=== PATIENT | male | born 1950 | race Caucasian/White ===

== ENCOUNTER → 2018-03-11 | Outpatient (CLI) | payer MEDICARE ==
[~2018-03-11] MED LIST: 100CC Multi-Ad1 EACH; ASCO500 PO; CEPH500 PO; CHOL10002; FLUT.05NI; FLUT44OIA; Glucosamine H1500 MG PO; OLME5TAB; Seroquel50 MG PO; TAMS.4ER PO; TOCO1000 PO; VALS80 PO
== END | disposition home or self-care (01) ==
LOC: OLS 08:00 → LAB SHORT 08:00
DX: R19.7 Diarrhea, unspecified (principal)
CPT/HCPCS: 87177; 87209

== ENCOUNTER → 2018-03-12 | Outpatient (CLI) | payer MEDICARE | END | disposition home or self-care (01) | LOC: OLS 08:00 → LAB SHORT 08:00 | DX: R19.7 Diarrhea, unspecified (principal) | CPT/HCPCS: 87177; 87209 ==

== ENCOUNTER → 2018-03-14 | Outpatient (CLI) | payer MEDICARE | END | disposition home or self-care (01) | LOC: OLS 08:00 → LAB SHORT 08:00 | PROVIDERS: Family Medicine | DX: R19.7 Diarrhea, unspecified (principal) | CPT/HCPCS: 87015; 87045; 87046; 87205; 87328; 87329; 87493; 87899 ==

== ENCOUNTER 2018-06-14 07:42 | Day surgery (SDC) | payer MEDICARE ==
[~2018-06-14] VITALS: Ht 185.4 cm; Wt 98.9 kg
== END 2018-06-14 10:02 | disposition home or self-care (01) ==
LOC: ORSCSDS 07:42
PROVIDERS: Surgery
PROC: 0DJD8ZZ Inspection of Lower Intestinal Tract, Via Natural or Artificial Opening Endoscopic (ICD-10-PCS; principal; 2018-06-14 09:15)
DX: Z12.11 Encounter for screening for malignant neoplasm of colon (principal); Z86.010 Personal history of colon polyps; Z79.899 Other long term (current) drug therapy; I10 Essential (primary) hypertension; B19.20 Unspecified viral hepatitis C without hepatic coma
CPT/HCPCS: J7120

== ENCOUNTER 2021-01-17 12:44 | Emergency (ER) | payer MEDICARE, OTHER ==
[~2021-01-17] VITALS: Ht 190.5 cm; Wt 102.1 kg
[2021-01-17] MEDS ORDERED: TELMISARTAN40 MG PO (12:51)
== END 2021-01-17 14:19 | disposition home or self-care (01) ==
LOC: ER 12:44
DX: S61.012A Laceration without foreign body of left thumb without damage to nail, initial encounter (principal); Z23 Encounter for immunization; Z87.891 Personal history of nicotine dependence; Z88.6 Allergy status to analgesic agent; Z88.8 Allergy status to other drugs, medicaments and biological substances; Z79.899 Other long term (current) drug therapy; W45.8XXA Other foreign body or object entering through skin, initial encounter
CPT/HCPCS: 12002; 73140; 90471; 90714; 99283-25

== ENCOUNTER 2021-01-20 13:26 | Emergency (ER) | payer OTHER, MEDICARE ==
[~2021-01-20] VITALS: Ht 190.5 cm; Wt 102.1 kg
[~2021-01-20 13:26] MED LIST changes: +TELMISARTAN40 MG PO
[2021-01-20 14:49] LABS: BASOPHILS ABSOLUTE AUTO 0.03 K/mm3 (0.00-0.23); BASOPHILS PERCENT AUTO 1 % (0-2); EOSINOPHILS ABSOLUTE AUTO 0.18 K/mm3 (0.00-0.68); EOSINOPHILS PERCENT AUTO 3 % (0-6); Hematocrit 44.2 % (37.0-53.0); IMMATURE GRAN ABSOLUTE AUTO 0.01 K/mm3 (0.00-0.10); IMMATURE GRAN PERCENT AUTO 0 % (0-1); LYMPHOCYTES PERCENT AUTO 26 % (21-46); MONOCYTES ABSOLUTE AUTO 0.51 K/mm3 (0.16-1.47); MONOCYTES PERCENT AUTO 10 % (4-13); Mean Corpuscular HGB 29.3 pg (26.0-34.0); Mean Corpuscular HGB Conc 33.9 g/dL (31.5-36.5); Mean Corpuscular Volume 86 fL (80-100); Mean Platelet Volume 11.1 fL (9.1-12.4); NEUTROPHILS ABSOLUTE AUTO 3.25 K/mm3 (1.96-9.15); NEUTROPHILS PERCENT AUTO 60 % (41-73); Platelet Count 127 K/mm3 (150-400); RDW Standard Deviation 40.7 fL (35.1-46.3); Red Blood Cell Count 5.12 M/mm3 (4.30-5.90); White Blood Cell Count 5.38 K/mm3 (4.00-11.30)
[2021-01-20] MEDS ORDERED: AMOCLA875 PO (14:58)
[2021-01-20 15:02] LABS: Anion Gap 6 mmol/L (6-16); Blood Urea Nitrogen 17 mg/dL (8-24); Bun/Creatinine Ratio 16.5 (12.0-20.0); CO2, Blood 26 mmol/L (21-32); Calcium, Blood 9.4 mg/dL (8.5-10.1); Chloride, Blood 109 mmol/L (98-108); Creatinine, Blood 1.03 mg/dL (0.60-1.20); Glomerular Filtration Rate >60 (60-); Glucose, Blood 90 mg/dL (70-99); Potassium, Blood 3.9 mmol/L (3.5-5.5); Sodium, Blood 141 mmol/L (136-145)
== END 2021-01-20 15:40 | disposition home or self-care (01) ==
LOC: ER 13:26
PROVIDERS: Physician Assistant
DX: S61.012A Laceration without foreign body of left thumb without damage to nail, initial encounter (principal); L08.9 Local infection of the skin and subcutaneous tissue, unspecified; I10 Essential (primary) hypertension; Z79.899 Other long term (current) drug therapy; Z88.6 Allergy status to analgesic agent; Z87.891 Personal history of nicotine dependence
CPT/HCPCS: 36415; 73140; 80048; 85025; 96374; 99283-25; J0690

== ENCOUNTER 2021-01-22 09:04 | Emergency (ER) | payer OTHER, MEDICARE ==
[~2021-01-22] VITALS: Ht 190.5 cm; Wt 102.1 kg
[~2021-01-22 09:04] MED LIST changes: +AMOCLA875 PO
== END 2021-01-22 12:02 | disposition home or self-care (01) ==
LOC: ER 09:04
DX: L03.012 Cellulitis of left finger (principal); S61.012D Laceration without foreign body of left thumb without damage to nail, subsequent encounter; I10 Essential (primary) hypertension; Z88.6 Allergy status to analgesic agent; Z88.8 Allergy status to other drugs, medicaments and biological substances; Z79.899 Other long term (current) drug therapy; X58.XXXD Exposure to other specified factors, subsequent encounter
CPT/HCPCS: 36415; 73201; 99283-25; Q9967

== ENCOUNTER → 2021-06-30 | Outpatient (CLI) | payer MEDICARE | END | disposition home or self-care (01) | LOC: LAB 12:32 → LAB SHORT 12:32 | DX: D36.10 Benign neoplasm of peripheral nerves and autonomic nervous system, unspecified (principal) | CPT/HCPCS: 88305 ==

== ENCOUNTER → 2021-11-18 | Outpatient (CLI) | payer MEDICARE | END | disposition home or self-care (01) | LOC: LAB SHORT 17:48 → LAB 17:48 | DX: N39.41 Urge incontinence (principal) | CPT/HCPCS: 87086 ==

== ENCOUNTER → 2022-08-25 | Outpatient (CLI) | payer MEDICARE | END | disposition home or self-care (01) | LOC: LAB SHORT 10:54 | DX: R10.32 Left lower quadrant pain (principal) | CPT/HCPCS: 87086 ==

== ENCOUNTER 2023-01-26 06:49 | Day surgery (SDC) | payer MEDICARE ==
[~2023-01-26] VITALS: Ht 190.5 cm; Wt 99.1 kg
[~2023-01-26 06:49] MED LIST changes: +ALLEGRA ALLERG180 MG PO; +DUTA.5 PO; +FLONASE ALLERG9.9 M2; +TOLT4 PO; +VOLTAREN ARTHRI20 GM
--- NOTE | 2023-01-26 08:39 | NUR ---
01/26/23 0839 ALVARADO LOPES, STUDENT NURSE, ASSISTING WITH CARE.
[2023-01-26 08:42] VITALS: BP 110/75
== END 2023-01-26 08:50 | disposition home or self-care (01) ==
LOC: ORSCSDS 06:49
PROVIDERS: Surgery
PROC: 0DJD8ZZ Inspection of Lower Intestinal Tract, Via Natural or Artificial Opening Endoscopic (ICD-10-PCS; principal; 2023-01-26 08:00)
DX: Z12.11 Encounter for screening for malignant neoplasm of colon (principal); Z86.010 Personal history of colon polyps; I10 Essential (primary) hypertension; K21.9 Gastro-esophageal reflux disease without esophagitis; F32.A Depression, unspecified; Z87.891 Personal history of nicotine dependence; Z79.899 Other long term (current) drug therapy
CPT/HCPCS: J2405; J2704; J7120

== ENCOUNTER 2023-10-04 11:15 | Day surgery (SDC) | payer MEDICARE ==
[~2023-10-04] VITALS: Ht 190.5 cm; Wt 101.9 kg
--- NOTE | 2023-10-04 12:53 | NUR ---
10/04/23 1253 Lily Gruber ROPIVACAINE 0.5% 30 ML MIXED & VERIFIED W/ EPI 0.15 ML (1MG/ML), PER ORDER, TO MAKE ROPIVACAINE 0.5% 1:200,000 FOR INJECTION AT OPSITE BY DR LOYD.
[2023-10-04 14:20] VITALS: BP 131/78
--- NOTE | 2023-10-04 14:28 | NUR ---
10/04/23 1428 Rubens Naik FENTANYL 25MCG GIVEN AT 1425 FOR 6/10 PAIN TO RIGHT FOOT.
== END 2023-10-04 15:35 | disposition home or self-care (01) ==
LOC: ORSCSDS 11:15
PROVIDERS: Podiatrist Foot & Ankle Surgery
PROC: 0SGP04Z Fusion of Right Toe Phalangeal Joint with Internal Fixation Device, Open Approach (ICD-10-PCS; principal; 2023-10-04 12:30)
PROC: 0Q8N0ZZ Division of Right Metatarsal, Open Approach (ICD-10-PCS; principal; 2023-10-04 12:30)
DX: M77.41 Metatarsalgia, right foot (principal); M20.41 Other hammer toe(s) (acquired), right foot; I10 Essential (primary) hypertension; Z79.899 Other long term (current) drug therapy
CPT/HCPCS: C1713; C1769; J0171; J0690; J1100; J2405; J2704; J2795; J3010; J7120

== ENCOUNTER 2024-01-05 11:12 | Emergency (ER) | payer MEDICARE ==
[~2024-01-05] VITALS: Ht 190.5 cm; Wt 102.1 kg
[2024-01-05 11:40] VITALS: BP 168/96
== END 2024-01-05 12:40 | disposition home or self-care (01) ==
LOC: ER 11:12
DX: S00.01XA Abrasion of scalp, initial encounter (principal); I10 Essential (primary) hypertension; M19.90 Unspecified osteoarthritis, unspecified site; Z79.899 Other long term (current) drug therapy; Z88.6 Allergy status to analgesic agent; Z88.8 Allergy status to other drugs, medicaments and biological substances; W22.8XXA Striking against or struck by other objects, initial encounter; Y92.015 Private garage of single-family (private) house as the place of occurrence of the external cause; Y93.01 Activity, walking, marching and hiking
CPT/HCPCS: 70450; 99283-25

== ENCOUNTER 2024-09-04 07:13 | Emergency (ER) | payer MEDICARE ==
[~2024-09-04] VITALS: Ht 190.5 cm; Wt 104.3 kg
[2024-09-04] MEDS ORDERED: NS 1,000 ML IV SCH ×2 (08:30→09:45)
[2024-09-04 08:45] LABS: BASOPHILS ABSOLUTE AUTO 0.02 K/mm3 (0.00-0.23); BASOPHILS PERCENT AUTO 1 % (0-2); EOSINOPHILS ABSOLUTE AUTO 0.13 K/mm3 (0.00-0.68); EOSINOPHILS PERCENT AUTO 3 % (0-6); Hematocrit 46.6 % (37.0-53.0); Hemoglobin 16.1 g/dL (13.5-17.5); IMMATURE GRAN ABSOLUTE AUTO 0.01 K/mm3 (0.00-0.10); IMMATURE GRAN PERCENT AUTO 0 % (0-1); LYMPHOCYTES ABSOLUTE AUTO 1.26 K/mm3 (0.84-5.20); LYMPHOCYTES PERCENT AUTO 29 % (21-46); MONOCYTES ABSOLUTE AUTO 0.62 K/mm3 (0.16-1.47); MONOCYTES PERCENT AUTO 14 % (4-13); Mean Corpuscular HGB 29.5 pg (26.0-34.0); Mean Corpuscular HGB Conc 34.5 g/dL (31.5-36.5); Mean Corpuscular Volume 86 fL (80-100); Mean Platelet Volume 10.5 fL (9.1-12.4); NEUTROPHILS ABSOLUTE AUTO 2.28 K/mm3 (1.96-9.15); NEUTROPHILS PERCENT AUTO 53 % (41-73); Platelet Count 141 K/mm3 (150-400); RDW Coefficient Variation 13.2 % (11.7-14.2); RDW Standard Deviation 40.6 fL (35.1-46.3); Red Blood Cell Count 5.45 M/mm3 (4.30-5.90); White Blood Cell Count 4.32 K/mm3 (4.00-11.30)
[2024-09-04 09:19] LABS: Albumin, Blood 3.6 g/dL (3.4-5.0); Albumin/Globulin Ratio 1.1 (0.8-1.8); Bilirubin, Total 0.9 mg/dL (0.1-1.0); Bun/Creatinine Ratio 21.2 (12.0-20.0); Calcium, Blood 9.7 mg/dL (8.5-10.1); Creatinine, Blood 1.18 mg/dL (0.60-1.20); Globulin, Blood 3.3 g/dL (2.2-4.0); Potassium, Blood 4.1 mmol/L (3.5-5.5); Total Protein, Blood 6.9 g/dL (6.4-8.2)
[2024-09-04 09:27] LABS: Influenza A, PCR NEGATIVE (NEGATIVE); Influenza B, PCR NEGATIVE (NEGATIVE); Resp Syncytial Virus, PCR NEGATIVE (NEGATIVE); SARS-Cov-2 (COVID-19) PCR, MMC NEGATIVE (NEGATIVE)
[2024-09-04] MEDS ORDERED: Dicyclomine HCl 10 MG/ML 2ML Amp IM ONE (09:50)
[2024-09-04] MEDS ORDERED: Ondansetron HCl 2 MG / ML 2ML Vial IV ONE (09:50)
[2024-09-04] MEDS ORDERED: DICY20 PO (10:43)
[2024-09-04] MEDS ORDERED: ONDA4ODT MM (10:43)
[2024-09-04 10:48] VITALS: BP 146/75
== END 2024-09-04 11:01 | disposition home or self-care (01) ==
LOC: ER 07:13
PROVIDERS: Physician Assistant
DX: A08.4 Viral intestinal infection, unspecified (principal); E86.0 Dehydration; Z87.891 Personal history of nicotine dependence; I10 Essential (primary) hypertension; Z79.899 Other long term (current) drug therapy; Z88.6 Allergy status to analgesic agent; Z88.8 Allergy status to other drugs, medicaments and biological substances
CPT/HCPCS: 0241U; 80053; 85025; 96361; 96372-59; 96374; 99284-25; J0500; J2405; J7030